=== PATIENT | female | born 1970 | race Caucasian/White ===

== ENCOUNTER 2018-12-24 07:07 | Emergency (ER) | payer SELFPAY ==
[~2018-12-24] VITALS: Ht 170.2 cm; Wt 77.3 kg
[~2018-12-24 07:07] MED LIST: HYDROCODONE-APA1 TAB PO
[2018-12-24 07:22] VITALS: Ht 170.2 cm; Wt 77.3 kg
[2018-12-24] MEDS ORDERED: HYDROCODON-ACE1 EAC2 PO (08:07)
[2018-12-24 08:35] VITALS: BP 124/62
== END 2018-12-24 08:36 | disposition home or self-care (01) ==
LOC: D.ER 07:07
DX: S92.351A Displaced fracture of fifth metatarsal bone, right foot, initial encounter for closed fracture (principal); W18.31XA Fall on same level due to stepping on an object, initial encounter; Y93.89 Activity, other specified; Y92.019 Unspecified place in single-family (private) house as the place of occurrence of the external cause; S99.811A Other specified injuries of right ankle, initial encounter

== ENCOUNTER 2020-03-14 12:35 | Emergency (ER) | payer MEDICAID ==
[~2020-03-14] VITALS: Ht 170.2 cm; Wt 79.5 kg
[~2020-03-14 12:35] MED LIST changes: +HYDROCODON-ACE1 EAC2 PO
[2020-03-14 12:40] VITALS: Ht 170.2 cm; Wt 79.5 kg
[2020-03-14 13:10] LABS: BILIRUBIN NEGATIVE (NEGATIVE); GLUCOSE NEGATIVE (NEGATIVE); KETONE NEGATIVE (NEGATIVE); NITRITE POSITIVE (NEGATIVE); UROBILINOGEN NORMAL (NORMAL)
[2020-03-14 13:11] LABS: BACTERIA MANY /hpf (NEGATIVE); EPITHELIAL CELLS 0-5 /hpf (0-5); RED CELLS - URINE 0-5 /hpf (0-5)
[2020-03-14 13:21] LABS: BASOPHILS 0.1 % (0-2); EOSINOPHILS 0.3 % (0-7); HEMATOCRIT 44.4 % (36.0-48.0); HEMOGLOBIN 15.2 g/dL (12-16); IMMATURE GRANULOCYTES 0.7 % (0-5); LYMPHOCYTES 6.7 % (15-50); MCH 32.5 pg (26.0-34.0); MCHC 34.2 g/dL (31.0-37.0); MCV 94.9 fL (80.0-100.0); MEAN PLATELET VOLUME 10.5 fL (7.4-10.4); NEUTROPHILS 90.2 % (40-80); PLATELET COUNT 133 10x3/uL (130-400); RBC 4.68 10x6/uL (4.00-5.40); RDW 13.1 % (11.5-14.5); WBC 7.6 10x3/uL (4.8-10.8)
[2020-03-14 13:38] LABS: CALC OSMOLALITY 272 mosm/kg (275-300); CARBON DIOXIDE 21.7 mmol/L (21.0-32.0); CHLORIDE - SERUM 103 mmol/L (98-107); GLUCOSE 173 mg/dL (74-106); POTASSIUM - SERUM 4.5 mmol/L (3.5-5.1); SODIUM 134 mmol/L (136-145); UREA NITROGEN 14 mg/dL (7-18); eGFR NON AFRICAN AMERICAN 62 mL/min (90-120)
[2020-03-14 13:47] LABS: ALBUMIN 3.2 g/dL (3.4-5.0); ALKALINE PHOSPHATASE 117 U/L (30-120); ALT (SGPT) 156 U/L (10-68); AMYLASE - SERUM 58 U/L (25-115); LIPASE 172 U/L (73-393); PROTEIN - SERUM 7.6 g/dL (6.4-8.2); TROPONIN-I < 0.017 ng/mL (0.000-0.060)
[2020-03-14] MEDS ORDERED: MACROBID100 MG PO (14:58)
[2020-03-14 15:18] VITALS: BP 146/80
== END 2020-03-14 15:23 | disposition home or self-care (01) ==
LOC: D.ER 12:35
PROVIDERS: Family Medicine
DX: R10.11 Right upper quadrant pain (principal); K74.60 Unspecified cirrhosis of liver; N39.0 Urinary tract infection, site not specified

== ENCOUNTER 2021-01-31 16:55 | Emergency (ER) | payer OTHER ==
[~2021-01-31] VITALS: Ht 170.2 cm; Wt 79.3 kg
[~2021-01-31 16:55] MED LIST changes: +ALEVE220 MG PO; +BACTRIM DS TAB1 EAC1 PO; +BENADRYL25 MG PO; +CHANTIX 1 MG TAB1 MG PO; +CLEOCIN HCL300 MG PO; +FLORANEX / LACT1 TAB PO; +K-TAB10 MEQ PO; +LASIX40 MG; +MACROBID100 MG PO; +NICODERM CQ1 EAC2 TOPICAL; +PERCOCET 10-321 EAC1 PO; +PHENERGAN25 M1 PO; +PROPRANOLOL HCL10 MG PO; +VISTARIL50 MG PO
[2021-01-31 17:03] VITALS: Ht 170.2 cm; Wt 79.3 kg
[2021-01-31 18:13] LABS: BASOPHILS 0.3 % (0-2); EOSINOPHILS 1.6 % (0-7); HEMATOCRIT 42.1 % (36.0-48.0); HEMOGLOBIN 14.4 g/dL (12-16); IMMATURE GRANULOCYTES 0.3 % (0-5); LYMPHOCYTE ABS# 2.66 10x3/uL (1.18-3.74); LYMPHOCYTES 36.4 % (15-50); MCH 29.8 pg (26.0-34.0); MCHC 34.2 g/dL (31.0-37.0); MEAN PLATELET VOLUME 11.1 fL (7.4-10.4); MONOCYTES 13.4 % (2-11); PLATELET COUNT 149 10x3/uL (130-400); RBC 4.84 10x6/uL (4.00-5.40); RDW 16.1 % (11.5-14.5); WBC 7.3 10x3/uL (4.8-10.8)
[2021-01-31 18:21] LABS: CALC OSMOLALITY 272 mosm/kg (275-300); CALCIUM 9.3 mg/dL (8.5-10.1); CARBON DIOXIDE 23.7 mmol/L (21.0-32.0); CHLORIDE - SERUM 102 mmol/L (98-107); CREATININE - SERUM 0.6 mg/dL (0.6-1.3); GLUCOSE 119 mg/dL (74-106); POTASSIUM - SERUM 4.3 mmol/L (3.5-5.1); SODIUM 137 mmol/L (136-145); UREA NITROGEN 8 mg/dL (7-18); eGFR NON AFRICAN AMERICAN > 90 mL/min (90-120)
[2021-01-31 18:24] LABS: BILIRUBIN NEGATIVE (NEGATIVE); KETONE NEGATIVE (NEGATIVE); NITRITE POSITIVE (NEGATIVE); UROBILINOGEN NORMAL mg/dL (< 2)
[2021-01-31 18:25] LABS: BACTERIA MANY HPF (NONE SEEN); SQUAMOUS EPITHELIAL 0-5 HPF (0-4); WHITE CELLS - URINE 0-5 HPF (0-4)
[2021-01-31 18:28] LABS: ALBUMIN 3.7 g/dL (3.4-5.0); ALKALINE PHOSPHATASE 76 U/L (30-120); ALT (SGPT) 25 U/L (10-68); PROTEIN - SERUM 7.7 g/dL (6.4-8.2); URIC ACID 3.9 mg/dL (2.6-7.2)
[2021-01-31 18:31] LABS: UDS - AMPHET NEGATIVE QUAL (NEGATIVE); UDS - BARB NEGATIVE QUAL (NEGATIVE); UDS - BENZO NEGATIVE QUAL (NEGATIVE); UDS - COCAINE NEGATIVE QUAL (NEGATIVE); UDS - OPIATE POSITIVE QUAL (NEGATIVE); UDS - PCP NEGATIVE QUAL (NEGATIVE); UDS - THC NEGATIVE QUAL (NEGATIVE)
[2021-01-31] MEDS ORDERED: ACETAMINOPHEN500 M1 PO (18:37)
[2021-01-31] MEDS ORDERED: LEVAQUIN750 MG PO (18:37)
[2021-01-31] MEDS ORDERED: CYCLOBENZAPRINE10 MG PO (18:37)
[2021-01-31] MEDS ORDERED: IBUPROFEN800 MG PO (18:41)
[2021-01-31 19:12] VITALS: BP 137/94
[2021-01-31 19:46] LABS: ERYTHROCYTE SEDIMENTATION RATE 32 mm/hr (0-30)
== END 2021-01-31 19:12 | disposition home or self-care (01) ==
LOC: D.ER 16:55
PROVIDERS: Family Medicine
DX: M25.512 Pain in left shoulder (principal); M79.672 Pain in left foot; M79.10 Myalgia, unspecified site; N39.0 Urinary tract infection, site not specified; T14.8XXA Other injury of unspecified body region, initial encounter; I10 Essential (primary) hypertension; Z72.0 Tobacco use

== ENCOUNTER 2021-03-12 06:09 | Day surgery (SDC) | payer OTHER ==
[~2021-03-12] VITALS: Ht 170.2 cm; Wt 82.1 kg
[~2021-03-12 06:09] MED LIST changes: +ACETAMINOPHEN500 M1 PO; +CYCLOBENZAPRINE10 MG PO; +IBUPROFEN800 MG PO; +LEVAQUIN750 MG PO; +OMEPRAZOLE CAP 20M PO
[2021-03-12 06:45] LABS: ALBUMIN 3.5 g/dL (3.4-5.0); ALKALINE PHOSPHATASE 92 U/L (30-120); ALT (SGPT) 22 U/L (10-68); BILIRUBIN - TOTAL 0.62 mg/dL (0.2-1.3); CALC OSMOLALITY 279 mosm/kg (275-300); CALCIUM 9.4 mg/dL (8.5-10.1); CARBON DIOXIDE 25.4 mmol/L (21.0-32.0); CHLORIDE - SERUM 104 mmol/L (98-107); CREATININE - SERUM 0.8 mg/dL (0.6-1.3); GLUCOSE 117 mg/dL (74-106); POTASSIUM - SERUM 4.4 mmol/L (3.5-5.1); PROTEIN - SERUM 8.1 g/dL (6.4-8.2); SODIUM 139 mmol/L (136-145); UREA NITROGEN 14 mg/dL (7-18); eGFR NON AFRICAN AMERICAN 80 mL/min (90-120)
[2021-03-12 06:59] VITALS: BP 132/75; Ht 170.2 cm; Wt 82.1 kg
[2021-03-12 07:05] LABS: BASOPHILS 0.1 % (0-2); EOSINOPHILS 1.2 % (0-7); HEMOGLOBIN 14.3 g/dL (12-16); IMMATURE GRANULOCYTES 0.3 % (0-5); LYMPHOCYTE ABS# 2.94 10x3/uL (1.18-3.74); LYMPHOCYTES 38.3 % (15-50); MCH 30.2 pg (26.0-34.0); MCV 88.8 fL (80.0-100.0); MEAN PLATELET VOLUME 11.3 fL (7.4-10.4); MONOCYTES 10.3 % (2-11); NEUTROPHIL ABS# 3.82 10x3/uL (1.56-6.13); NEUTROPHILS 49.8 % (40-80); PLATELET COUNT 174 10x3/uL (130-400); RBC 4.73 10x6/uL (4.00-5.40); RDW 14.8 % (11.5-14.5); WBC 7.7 10x3/uL (4.8-10.8)
[2021-03-12 07:16] LABS: APTT 28.2 SECONDS (22.8-39.4)
[2021-03-12 07:17] LABS: INR 1.16 (0.85-1.17); PROTIME 13.7 SECONDS (11.6-15.0)
[2021-03-12 11:02] LABS: HCG SERUM NEGATIVE (NEGATIVE)
--- NOTE | 2021-03-12 17:05 | OP ---
PATIENT NAME: JEFF ALVAREZ MEDICAL RECORD: [id number] :66 LOCATION:[facility] ADMISSION DATE: SURGEON: ARYAN HOLDER DO DATE OF OPERATION: 03/12/2021 PROCEDURE PERFORMED: Right shoulder arthroscopy with rotator cuff repair, distal clavicle excision and subacromial decompression with acromioplasty, biceps tenodesis. PREOPERATIVE DIAGNOSES: Right shoulder full thickness rotator cuff tear, superior labrum anterior and posterior tear, acromioclavicular joint arthritis and subacromial impingement. POSTOPERATIVE DIAGNOSES: Right shoulder full thickness rotator cuff tear, superior labrum anterior and posterior tear, acromioclavicular joint arthritis and subacromial impingement. INDICATIONS: Ms. Alvarez is a 50-year-old female who did her left shoulder several months ago, her right shoulder had been hurting her. She got an MRI showing the above findings. She is aware of the risks of this including infection, bleeding, damage to nerves or vessels, need for further surgery, continued pain and need for further surgery, loss of motion, frozen shoulder syndrome, failure of implants and even and she signed a consent. SURGEON: Aryan Holder DO DESCRIPTION OF PROCEDURE: The patient was given a block by anesthesia in preoperative area, given a gram of vancomycin due to her allergies and we believe the IV infiltrated, so she was given another 500 mg in the OR. She was taken to the operative suite, laid in the left lateral decubitus position with the right shoulder up, sedated and LMA was placed. The right shoulder was then prepped and draped in sterile fashion. A timeout was performed, everyone was in agreeance with the correct side, site, patient and procedure. I then began by marking out the acromion and inserted an 18-gauge spinal needle into the shoulder joint, inflating it with 60 mL of normal saline through a posterior portal. I then removed that, establish a posterior portal with an 11-blade scalpel, entered the trocar into the shoulder joint and then established an anterior portal with an 18-gauge spinal needle and 11-blade scalpel, trocar entered in. I then inspected the shoulder and the cartilage looked good. There was nothing in the inferior gutter; however, she does have a large SLAP tear and severely frayed long head of the biceps tendon also at the supraspinatus anterior fibers. She had a full-thickness tear to the anterior mid rotator cuff, supraspinatus, subscapularis was in good shape as well as the infraspinatus. I then brought in burner and did a biceps tenotomy and debrided the labrum with the coag. I then went to the subacromial space, established a lateral portal with 18-gauge spinal needle and 11-blade scalpel, brought the trocar into and then the burner. I did a subacromial decompression, acromioplasty into the anterior portal and a distal clavicle excision, opened up the AC joint to approximately 7 mm. I then saw the full-thickness tear on the bursal side as well. I then removed the instruments, reprepped and opened up the shoulder through the lateral portal, made careful dissection down to the rotator cuff tendon tear to remove part of the bursa, put a medial row anchor in and then bit through the tendon with 4 suture tape and brought it over to a lateral row anchor repairing it nicely. I then put on the Regeneten implant and stapled it into place. I then went to the anterior humerus, made an incision, OPERATIVE REPORT [id number] JEFF ALVAREZ carefully dissected out long head of the biceps tendon, put a 2.9 JuggerLoc biceps tendon loop anchor and then looped the long head of the biceps tendon through it and cinched it down to the humerus and cut the excess suture, took a free needle, went back through the tendon twice, tied it down and cut the excess tendon and suture. I then irrigated and Roby Batista, certified surgical first cook closed the site with 2-0 Vicryl in inverted interrupted fashion, 4-0 Monocryl ran on the skin and then 4-0 Monocryl inverted interrupted fashion on the portal sites covered in all Dermabond glue, Telfa and Tegaderm. She was then awakened and taken to recovery in stable condition. BLOOD LOSS: Minimal. COMPLICATIONS: None. TRANSINT:[id number] Voice Confirmation ID: [id number] DOCUMENT ID: [id number] ARYAN HOLDER DO at 1705 CC: [id number] DICTATION DATE: 03/12/21 1037 CHIMNEY BUILDER HELPER: 03/12/21 1551 [facility] [address] [place] [address]
--- NOTE | 2021-03-12 17:21 | NUR ---
IV D/C'D WITH CANNULA INTACT, PRESSURE HELD X5 MIN AND DRSG PLACED. SLING AND WAIST SWATH PLACED. DISCHARGE INSTRUCRTIONS DISCUSSED WITH PT AND SHE VERBALIZED AN UNDERSTANDING. EFFECTIVE PERIPHERAL NERVE BLOCK.
== END 2021-03-12 12:15 | disposition home or self-care (01) ==
LOC: D.OPS 06:09
PROVIDERS: Anesthesiology; ATTEND Orthopaedic Surgery
DX: M25.511 Pain in right shoulder (principal); M75.101 Unspecified rotator cuff tear or rupture of right shoulder, not specified as traumatic; M13.811 Other specified arthritis, right shoulder; M75.41 Impingement syndrome of right shoulder; S43.431D Superior glenoid labrum lesion of right shoulder, subsequent encounter